=== PATIENT | female | born 1980 | race Caucasian/White ===

== ENCOUNTER 2016-07-28 10:18 | Outpatient (CLI) | payer BC ==
[~2016-07-28] VITALS: Ht 170.2 cm; Wt 93.4 kg
[2016-07-28 10:39] VITALS: Ht 170.2 cm; Wt 93.4 kg
[2016-07-28] MEDS ORDERED: FOLI-49 PO (10:39)
[2016-07-28] MEDS ORDERED: PRENAT PO (10:39)
[2016-07-28] MEDS ORDERED: CALC500T91 PO (10:39)
[2016-07-28] MEDS ORDERED: URSO300C3 PO (10:39)
[2016-07-28 10:40] VITALS: BP 123/80; PULSE 107; RESP 18
[2016-07-28] MEDS ORDERED: BETAMET NA PHOS/AC(6 MG/ML) 5ML INJ IM ONE (11:00)
--- NOTE | 2016-07-28 12:23 | TRIAGE ---
OB Triage Datetime Report Generated by CPN: 07/28/2016 12:23 Datetime: 07/28/2016 10:36 Assessment Type: Triage Maternal Assessment Level of Consciousness: Fully Conscious DTR's/Clonus: DTRs 2+; No Clonus Headache: Denies Blurred Vision: No Respiratory Effort: Unlabored; Regular Rhythm; Equal Expansion Breath Sounds, Left: Clear and Equal Breath Sounds, Right: Clear and Equal Nausea/Vomiting: Denies RUQ Epigastric Pain: Denies Lower Extremities Edema: None Degree: None Upper Extremities Edema: None Degree: None Facial Edema: None Fall Risk Assessment History of Falling: (0) No Secondary Diagnosis: (0) No Ambulatory Aid: (0) Bedrest/Nurse Assist IV Therapy: (0) No Gait: (0) Normal/Bedrest/Immobile Mental Status: (0) Oriented to Own Ability Fall Score: 0 Fall Risk Score Definition: No Risk: No action required Datetime: 07/28/2016 10:34 Time of Arrival: 07/28/2016 10:10 EGA: 35.3 Arrived By: Ambulatory Arrived From: Home Chief Complaint: PT SENT FOR EVAL OF JUNE/BETA 2ND DOSE Movement: Present Contractions: Denies/Absent Rupture of Membranes: Denies Vaginal Bleeding: None Vaginal Discharge: Denies Recent Sexual Intercouse: Denies Abdominal Trauma: Not Applicable Patient Complaints: Cramping Time Provider Notified: 07/28/2016 11:26 Provider Notified: ESHAGHIAN Initial Plan: EFM, BETAMETHASONE Datetime: 07/28/2016 10:30 Labor Evaluation Monitor Mode: External Heart Rate Monitor Mode: External US
--- NOTE | 2016-07-28 12:34 | CONS ---
Date/Time of Note Date/Time of Note DATE: 07/28/16 TIME: 12:27 Consultation Date/Type/Reason Admit Date/Time July 28, 2016 OB triage consult Reason for Consultation This patient is 35 years old 3 para 1 1 living 1 whose EDC is August 29, 2016 which makes her 35 weeks and 3 days today. She is in triage area due to cholestasis of for which she has been under treatment for few days She is now taking ursodiol 300 mg 3 times daily. Her first betamethasone was given last week and the last one about 3 days ago. On examination today her vital signs are normal blood pressure 123/80 pulse rate 107 respiration 18 and temperature 98 Her heart tracing is reactive with good variability and occasional axillary no deceleration Subjective hx not possible: pt non-verbal Constitutional: improved, no complaints, No chills, No diaphoresis, No disoriented, No febrile, No other, No poor po, No requiring IVF, No requiring O2 Eyes: No discharge, No no complaints, No other, No pain, No redness, No visual change ENT: No bleeding, No congestion, No discharge, No dysphagia, No no complaints, No other, No pain, No sore throat Respiratory: No cough, No no complaints, No other, No pain, No pleuritic pain, No shortness of breath, No sputum, No wheezing Cardiovascular: No chest pain, No edema, No lightheadedness, No no complaints, No orthopenea, No other, No palpitations, No paroxysmal nocturnal dyspnea Gastrointestinal: No blood, No constipation, No decreased appetite, No diarrhea , No flatus, No nausea, No no complaints, No other, No pain, No passing stool, No vomiting Genitourinary: other (No pelvic exam today), No bleeding, No discharge, No dysuria, No flank pain, No hematuria, No no complaints Musculoskeletal: No back pain, No bone/joint pain, No neck pain, No no complaints, No other, No restricted range of motion, No swelling Skin: other (Very distal erythema of the palms of the hand and soles of the feet), No bruising, No erythema, No laceration, No no complaints, No pruritis, No rash, No skin lesions Neurologic: other (Knee-jerk reflexes are normal), No confusion, No dizziness, No focal-weakness, No headache, No no complaints , No seizure, No syncope Endocrine: No dry skin, No no complaints, No other, No polydypsia, No polyuria , No temp intolerance Psychological: No anxiety, No confusion, No depression, No nl mood/affect, No no complaints, No other, No suicidal Additional Comments Patient will be discharged and will return in 3 days to repeat NST is being prepared for delivery of the baby before 37 weeks of gestation End of dictation thank you Current Medications Medications (Trade) Dose Ordered Sig/Sydnie Route PRN Reason Start Time Stop Time Status Last Admin Dose Admin Betamethasone Acet/Betameth SodPhos (Celestone Soluspan) 12 mg ONCE ONCE IM 07/28/16 11:00 07/28/16 11:17 DC 07/28/16 11:31 12 MG Social History Smoking Status: Current some day smoker Exam/Review of Systems Vital Signs Vitals Vital Signs Date Time Temp Pulse Resp B/P Pulse Ox O2 Delivery O2 Flow Rate FiO2 07/28/16 10:40 98.0 107 18 123/80 Room Air ARLETTE GALVAN MD Jul 28, 2016 12:34
== END 2016-07-28 12:30 | disposition home or self-care (01) ==
LOC: OBT 10:18 → L-D 10:20 → OBT 12:30
PROVIDERS: ATTEND Obstetrics & Gynecology
DX: O26.613 Liver and biliary tract disorders in pregnancy, third trimester (principal); O09.522 Supervision of elderly multigravida, second trimester; Z3A.36 36 weeks gestation of pregnancy
CPT/HCPCS: 96372; J0702; Z7500; G0463

== ENCOUNTER 2016-07-31 11:34 | Outpatient (CLI) | payer BC ==
[~2016-07-31] VITALS: Ht 170.2 cm; Wt 95.3 kg
[~2016-07-31 11:34] MED LIST: CALC500T91 PO; FOLI-49 PO; PRENAT PO; URSO300C3 PO
[2016-07-31 11:44] VITALS: Ht 170.2 cm; Wt 95.3 kg
--- NOTE | 2016-07-31 12:22 | RADRPT ---
PROCEDURE: OB ultrasound for biophysical profile CLINICAL INDICATION: Cholestasis TECHNIQUE: Multiple sonographic images of the pelvis were obtained. Transabdominal views of the g ravid uterus are available for review. The images were reviewed on a PACS workstation. COMPARISON: None FINDINGS: breathing movement = 2/2 tone = 2/2 motion = 2/2 ELGIN = 2/2 ELGIN = 12.6 cm Single live intrauterine with cardiac activity of 42 bpm. position is cephali c. The placenta is posterior. IMPRESSION: 1. Single live intrauterine gestation. 2. Biophysical profile = 8/8. 3. ELGIN = 12.6 cm. RPTAT: HH .Skye Gonzales MD, MD Date Time Electronically viewed and signed by .Skye Gonzales MD, on 07/31/2016 12:21 .G/
--- NOTE | 2016-07-31 12:33 | CONS ---
Date/Time of Note Date/Time of Note DATE: 07/31/16 TIME: 12:29 Assessment/Plan Assessment/Plan Additional Assessment/Plan 35 y/o at 35w 6d with cholestasis. NST/BPP normal. -discharge home with precautions -f/u with OB Consultation Date/Type/Reason Admit Date/Time Reason for Consultation NST/BPP Hx of Present Illness 35 y/o at 35w 6d here for NST/BPP for cholestasis. Patient taking actigall. Rejports some cramping. Denies LOF, VB, UCs, dysuria. +FM. h/o x1. Per HPI. Other systems negative. Past Medical History Medical History: no pertinent history Past Surgical History Past Surgical Hx: no surgical history Social History Denies habits. Exam/Review of Systems Exam Gen: NAD HEENT: NCAT CV: RRR Pulm: CTAB Abd: gravid, NT Back: no CVAT Ext: NT FHT: reactive [place]: no UCs JOYCE MCCLURE Jul 31, 2016 12:33 pm
--- NOTE | 2016-07-31 12:38 | TRIAGE ---
OB Triage Datetime Report Generated by CPN: 07/31/2016 12:37 Datetime: 07/31/2016 12:24 Comments: PT SEEN BY DR UAJE PT DC HOME FOR NST BPP 5//17 Datetime: 07/31/2016 12:20 Comments: LABORIST INFORMED Datetime: 07/31/2016 11:58 Labor Evaluation Frequency: NONE Pattern: Normal: <= 5 Contractions in 10 Minutes Resting Tone [place]: Relaxed Heart Rate FHR Baseline Rate: 145 Monitor Mode: External US FHR Baseline Changes: No Baseline Change Variability: Moderate 6-25 bpm Accelerations: 10X10 Decelerations: None Category: Category I Pain Presence: None/Denies Datetime: 07/31/2016 11:50 Stage of : OB Triage Maternal Assessment Level of Consciousness: Fully Conscious DTR's/Clonus: DTRs 2+; No Clonus Headache: Denies Blurred Vision: No Respiratory Effort: Unlabored; Regular Rhythm; Equal Expansion Breath Sounds, Left: Clear and Equal Breath Sounds, Right: Clear and Equal Nausea/Vomiting: Denies RUQ Epigastric Pain: Denies Lower Extremities Edema: None Degree: None Upper Extremities Edema: None Degree: None Facial Edema: None Temperature Route: Axillary Fall Risk Assessment History of Falling: (0) No Secondary Diagnosis: (0) No Ambulatory Aid: (0) Bedrest/Nurse Assist IV Therapy: (0) No Gait: (0) Normal/Bedrest/Immobile Mental Status: (0) Oriented to Own Ability Fall Score: 0 Fall Risk Score Definition: No Risk: No action required Datetime: 07/31/2016 11:48 Time of Arrival: 07/31/2016 11:51 EGA: 35.6 Arrived From: Home Chief Complaint: FOR NST AND BPP Movement: Present Contractions: Denies/Absent Rupture of Membranes: Denies Vaginal Discharge: Denies Recent Sexual Intercouse: Denies Abdominal Trauma: Not Applicable Patient Complaints: None Additional Patient Complaints: CHOLISTASIS IN PREG Time Provider Notified: 07/31/2016 11:49 Provider Notified: ESHAGIAN Initial Plan: EFM APPLIED Datetime: 07/31/2016 11:38 Stage of : OB Triage Datetime: 07/28/2016 11:30 Stage of : OB Triage Maternal Assessment Level of Consciousness: Fully Conscious Labor Evaluation Frequency: NONE Monitor Mode: External Resting Tone [place]: Relaxed Heart Rate FHR Baseline Rate: 135 Monitor Mode: External US Variability: Moderate 6-25 bpm Accelerations: 15X15 Decelerations: None Pain Assessment Pain Scale: 0 Pain Goal: 3 Vaginal Exam Membrane Status: Intact Vaginal Bleeding: None Datetime: 07/28/2016 10:36 Fall Score: 0 Fall Risk Score Definition: No Risk: No action required Datetime: 07/28/2016 10:34 EGA: 35.3
== END 2016-07-31 12:35 | disposition home or self-care (01) ==
LOC: OBT 11:34 → L-D 11:35 → OBT 12:35
PROVIDERS: ATTEND Obstetrics & Gynecology
DX: O26.613 Liver and biliary tract disorders in pregnancy, third trimester (principal); K83.1 Obstruction of bile duct; O09.523 Supervision of elderly multigravida, third trimester; Z3A.35 35 weeks gestation of pregnancy
CPT/HCPCS: 76818; Z7500; G0463

== ENCOUNTER 2016-08-03 12:54 | Outpatient (CLI) | payer BC ==
[~2016-08-03] VITALS: Ht 170.2 cm; Wt 94.2 kg
[2016-08-03 13:21] VITALS: Ht 170.2 cm; Wt 94.2 kg
[2016-08-03 13:22] VITALS: BP 129/76; PULSE 93
--- NOTE | 2016-08-03 15:01 | RADRPT ---
PROCEDURE: US OB biophysical profile. CLINICAL INDICATION: cholestasis TECHNIQUE: Multiple sonographic images of the pelvis were obtained. The images were reviewed on a PACS workstation. COMPARISON: None FINDINGS: Presentation: Cephalic Cardiac activity is present with 142 beats per minute. The placenta is posterior grade 2.. MVP: Amniotic fluid index: 10.2 cm Biophysical profile: movement 2/2 tone 2/2. breathing 2/2 ELGIN 2/2 Total 11/10 IMPRESSION: 1. Normal biophysical profile. 2. Amniotic fluid index is 10.2 cm 3. Viable fetus presenting in a cephalic presentation. RPTAT:AAJJ . Physician Krysten Date Time Electronically viewed and signed by Physician Krysten on 08/03/2016 15:00 /
--- NOTE | 2016-08-03 15:12 | TRIAGE ---
OB Triage Datetime Report Generated by CPN: 08/03/2016 15:12 Datetime: 08/03/2016 14:03 Labor Evaluation Frequency: 0 Monitor Mode: External Duration (sec)2399: 0 Pattern: Normal: <= 5 Contractions in 10 Minutes Contraction Comments: DENIES ANY UC'S. ABDOMEN SOFT TO PALPATION Heart Rate FHR Baseline Rate: 140 Monitor Mode: External US FHR Baseline Changes: No Baseline Change Variability: Moderate 6-25 bpm Accelerations: 15X15 Decelerations: None Category: Category I Datetime: 08/03/2016 13:19 Assessment Type: Triage Maternal Assessment Level of Consciousness: Fully Conscious DTR's/Clonus: DTRs 2+; No Clonus Headache: Denies Blurred Vision: No Respiratory Effort: Unlabored; Regular Rhythm; Equal Expansion Breath Sounds, Left: Clear and Equal Breath Sounds, Right: Clear and Equal Nausea/Vomiting: Denies RUQ Epigastric Pain: Denies Lower Extremities Edema: None Degree: None Upper Extremities Edema: None Degree: None Facial Edema: None Fall Risk Assessment History of Falling: (0) No Secondary Diagnosis: (0) No Ambulatory Aid: (0) Bedrest/Nurse Assist IV Therapy: (0) No Gait: (0) Normal/Bedrest/Immobile Mental Status: (0) Oriented to Own Ability Fall Score: 0 Fall Risk Score Definition: No Risk: No action required Datetime: 08/03/2016 13:17 Time of Arrival: 08/03/2016 12:45 EGA: 36.2 Arrived By: Ambulatory Arrived From: Office Chief Complaint: routine NST and BPP Movement: Present Contractions: Denies/Absent Rupture of Membranes: Denies Vaginal Discharge: Denies Recent Sexual Intercouse: Denies Abdominal Trauma: Not Applicable Patient Complaints: None Time Provider Notified: 08/03/2016 14:45 Provider Notified: ESPAWEL Initial Plan: NST AND BPP Datetime: 07/31/2016 11:50 Fall Score: 0 Fall Risk Score Definition: No Risk: No action required Datetime: 07/31/2016 11:48 EGA: 35.6 Datetime: 07/28/2016 10:36 Fall Score: 0 Fall Risk Score Definition: No Risk: No action required Datetime: 07/28/2016 10:34 EGA: 35.3
== END 2016-08-03 15:00 | disposition home or self-care (01) ==
LOC: L-D 12:54 → OBT 12:54
PROVIDERS: ATTEND Obstetrics & Gynecology
DX: O26.613 Liver and biliary tract disorders in pregnancy, third trimester (principal); K83.1 Obstruction of bile duct; Z3A.36 36 weeks gestation of pregnancy
CPT/HCPCS: 76818; Z7500; G0463